=== PATIENT | female | born 1955 | race Caucasian/White ===

== ENCOUNTER → 2022-07-13 | Outpatient (CLI) | payer MEDICARE, BC, SELFPAY ==
[2022-07-13 21:56] LABS: Absolute Lymphocyte Count 1.93 X10^3/uL (0.83-4.51); Absolute Neutrophil Count 3.8 X10^3/uL (2.0-7.7); Basophil# 0.04 X10^3/uL; Basophil% 0.6 % (0-1); Eosinophil# 0.04 X10^3/uL; Eosinophils% 0.6 % (0-5); Hematocrit 39.3 % (37-47); Hemoglobin 13.9 g/dL (12.0-15.0); Lymphocyte # 1.93 X10^3/ul (0.83-4.51); Lymphocyte % 30.3 % (19-41); Mean Corp Hgb Conc 35.4 g/dL (32-36); Mean Corpuscular Hgb 33.7 pg (27.0-32.0); Mean Corpuscular Volume 95.4 fL (81-99); Monocyte# 0.59 X10^3/uL; Monocyte% 9.2 % (0-10); NRBC Flagged by Analyzer 0 % (0-5); Neutrophil # 3.77 X10^3/uL (2.7-7.7); Neutrophil % 59.1 % (47-70); Platelet Count 231 K/mm3 (150-450); RBC Distribution Width CV 11.9 % (11.6-14.6); RBC Distribution Width SD 41.3 fl (35.1-43.9); Red Blood Count 4.12 M/mm3 (4.2-5.4); White Blood Count 6.4 K/mm3 (4.4-11.0)
[2022-07-13 22:15] LABS: AST(SGOT) 22 U/L (15-37); Alanine Aminotransfer ALT/SGPT 37 U/L (13-56); Alkaline Phosphatase 101 U/L (45-117); Anion Gap 8 (5-15); BUN 18 mg/dL (7-18); BUN/Creat Ratio 27.9 RATIO (10-20); Calcium,Total 9.3 mg/dL (8.5-10.1); Chloride 106 mmol/L (98-107); Cholesterol 140 mg/dL (200); Creatinine, Serum 0.64 mg/dL (0.55-1.02); EST Glomerular Filtration Rate 97 mL/min (>60); Est Glom Filt Rate - Afr Amer 118 mL/min (>60); Globulin 3.9 g/dL (2.2-4.2); Glucose 129 mg/dL (74-106); High Density Lipoprotein 50 mg/dL; Potassium 3.8 mmol/L (3.5-5.1); Protein, Total 7.9 g/dL (6.4-8.2); Sodium Level 139 mmol/L (136-145); Triglycerides 228 mg/dL; Very Low Density Lipoprotein 46 mg/dL (5-40)
== END | disposition home or self-care (01) ==
PROVIDERS: Visit Provider Nurse Practitioner
DX: E78.5 Hyperlipidemia, unspecified (principal)
CPT/HCPCS: 80053; 80061; 85025

== ENCOUNTER → 2022-11-13 | Outpatient (CLI) | payer MEDICARE, BC, SELFPAY ==
--- NOTE | 2022-11-13 12:33 | BI_ITS ---
MAMMOGRAPHY - BILATERAL SCREENING REASON FOR EXAM: Female, 67 years old. Routine annual screening examination. PERTINENT HISTORY: Personal history of breast cancer. Prior right lumpectomy and radiation treatment. TECHNIQUE: Digital bilateral breast lydia (3D mammographic acquisition) in the CC and MLO projections. 2-D mediolateral oblique (MLO) and craniocaudad (CC) views of both breasts were obtained. CAD: Full Field Digital Mammography with Computer Added Detection was performed. COMPARISON: Comparison is made with prior outside examination to November 07, 2021. FINDINGS: Breast Composition: The breasts are extremely dense, which lowers the sensitivity of mammography. There are no dominant masses or suspicious calcifications. The patient is status post lumpectomy in the deep upper slightly lateral aspect of the right breast with resultant postoperative scarring and breast deformity. Dense calcification is seen at the operative site. Surgical clips are seen in the right axillary region as well. No other significant abnormalities are identified. There has been no significant change since the prior study. BI/SCRN MAMM (CAD)W/LYDIA BILAT IMPRESSION: Stable bilateral screening mammogram. Yearly follow-up mammogram recommended. (A) ASSESSMENT CATEGORY: BIRADS Category 2: Benign. A letter regarding these results will be sent to the patient by the facility within 30 days. Approximately 10% of breast cancers are not detected by mammography. A normal mammogram should not delay biopsy of a clinically suspicious abnormality. [id number] Electronically Signed: Eulogio Barkley MD at 14:55 EDT ,
== END | disposition home or self-care (01) ==
LOC: OPBI 12:31
PROVIDERS: Referring Provider Nurse Practitioner; Visit Provider Nurse Practitioner
DX: Z12.31 Encounter for screening mammogram for malignant neoplasm of breast (principal); Z85.3 Personal history of malignant neoplasm of breast
CPT/HCPCS: 77063; 77067

== ENCOUNTER → 2022-12-25 | Outpatient (CLI) | payer MEDICARE, BC, SELFPAY ==
[2022-12-25 22:38] LABS: ALB/GLOB Ratio 0.9 RATIO (0.9-2.4); AST(SGOT) 26 U/L (15-37); Alanine Aminotransfer ALT/SGPT 39 U/L (13-56); Albumin, Serum 3.6 g/dL (3.2-5.0); Alkaline Phosphatase 101 U/L (45-117); Anion Gap 7 (5-15); BUN 16 mg/dL (7-18); BUN/Creat Ratio 20.4 RATIO (10-20); Calcium,Total 8.7 mg/dL (8.5-10.1); Chloride 106 mmol/L (98-107); Creatinine, Serum 0.78 mg/dL (0.55-1.02); EST Glomerular Filtration Rate 78 mL/min (>60); Est Glom Filt Rate - Afr Amer 94 mL/min (>60); Globulin 3.9 g/dL (2.2-4.2); Glucose 159 mg/dL (74-106); Potassium 3.8 mmol/L (3.5-5.1); Protein, Total 7.5 g/dL (6.4-8.2); Rheumatoid Factor < 10.0 IU/mL (<15); Sodium Level 138 mmol/L (136-145); Thyroid Stim Hormone (TSH) 1.55 uIU/mL (0.358-3.74); Uric Acid 3.6 mg/dL (2.6-6.0)
[2022-12-27 05:07] LABS: Complement C3 143 mg/dL (82-167)
[2022-12-27 14:09] LABS: ANTINUCLEAR ANTIBODIES DIRECT Negative (Negative)
== END | disposition home or self-care (01) ==
PROVIDERS: Referring Provider Nurse Practitioner; Visit Provider Nurse Practitioner
DX: M19.90 Unspecified osteoarthritis, unspecified site (principal); L56.4 Polymorphous light eruption; R45.4 Irritability and anger
CPT/HCPCS: 80053; 84443; 84550; 86038; 86160; 86225; 86235; 86431

== ENCOUNTER → 2023-02-06 | Outpatient (CLI) | payer MEDICARE, BC, SELFPAY ==
[2023-02-06 22:32] LABS: Cholesterol 262 mg/dL (200); High Density Lipoprotein 43 mg/dL; Triglycerides 498 mg/dL
== END | disposition home or self-care (01) ==
PROVIDERS: Visit Provider Nurse Practitioner
DX: E78.5 Hyperlipidemia, unspecified (principal)
CPT/HCPCS: 80061

== ENCOUNTER → 2023-08-09 | Outpatient (CLI) | payer MEDICARE, BC, SELFPAY ==
[2023-08-09 19:58] LABS: Cholesterol 207 mg/dL (200); High Density Lipoprotein 53 mg/dL; Triglycerides 108 mg/dL; Very Low Density Lipoprotein 22 mg/dL (5-40)
== END | disposition home or self-care (01) ==
PROVIDERS: Visit Provider Nurse Practitioner
DX: E78.5 Hyperlipidemia, unspecified (principal)
CPT/HCPCS: 80061

== ENCOUNTER → 2023-11-15 | Outpatient (CLI) | payer MEDICARE, BC, SELFPAY ==
--- NOTE | 2023-11-15 10:43 | BI_ITS ---
MAMMOGRAPHY - BILATERAL SCREENING 3-D TOMOSYNTHESIS REASON FOR EXAM: Female, 68 years old. Z12.31 - Encounter for screening mammogram for malignant neopl... PERTINENT HISTORY: No significant family history. TECHNIQUE: 2-D mammograms and 3-D Tomosynthesis of the breast (s) were performed. CAD was performed. COMPARISON: 11/13/2022 FINDINGS: The breast composition is Extermely dense tissue. Scattered benign calcifications are seen. No dense spiculated masses or suspicious microcalcifications are identified. No architectural distortion is identified. There is no skin thickening or retraction. There has been no significant change since the prior study. No change in lumpectomy changes and scarring in the upper outer quadrant right breast. BI/SCRN MAMM (CAD)W/LYDIA BILAT IMPRESSION: No mammographic signs of malignancy. Routine yearly mammograms recommended. ASSESSMENT CATEGORY: BIRADS Category 2: Benign. A letter regarding these results will be sent to the patient by the facility within 30 days. FOLLOW UP RECOMMENDATION: Yearly follow up mammogram recommended. (A) Approximately 10% of breast cancers are not detected by mammography. A normal mammogram should not delay biopsy of a clinically suspicious abnormality. Electronically Signed: Franki Tamayo MD at 13:49 EDT ,
== END | disposition home or self-care (01) ==
PROVIDERS: PCP Nurse Practitioner; Referring Provider Nurse Practitioner; Visit Provider Nurse Practitioner
DX: Z12.31 Encounter for screening mammogram for malignant neoplasm of breast (principal)
CPT/HCPCS: 77063; 77067

== ENCOUNTER → 2024-02-11 | Outpatient (CLI) | payer MEDICARE, BC, SELFPAY ==
[2024-02-11 20:51] LABS: Absolute Lymphocyte Count 1.93 X10^3/uL (0.83-4.51); Absolute Neutrophil Count 2.9 X10^3/uL (2.0-7.7); Basophil# 0.03 X10^3/uL; Basophil% 0.5 % (0-1); Eosinophil# 0.08 X10^3/uL; Eosinophils% 1.4 % (0-5); Hematocrit 39.3 % (37-47); Hemoglobin 13.4 g/dL (12.0-15.0); Lymphocyte # 1.93 X10^3/ul (0.83-4.51); Lymphocyte % 34.9 % (19-41); Mean Corp Hgb Conc 34.1 g/dL (32-36); Mean Corpuscular Hgb 32.9 pg (27.0-32.0); Mean Corpuscular Volume 96.6 fL (81-99); Mean Platelet Vol. 9.9 fl (6.2-12.0); Monocyte# 0.62 X10^3/uL; Monocyte% 11.2 % (0-10); NRBC Flagged by Analyzer 0 % (0-5); Neutrophil # 2.85 X10^3/uL (2.7-7.7); Neutrophil % 51.6 % (47-70); Platelet Count 334 K/mm3 (150-450); RBC Distribution Width CV 12.1 % (11.6-14.6); RBC Distribution Width SD 42.6 fl (35.1-43.9); Red Blood Count 4.07 M/mm3 (4.2-5.4); White Blood Count 5.5 K/mm3 (4.4-11.0)
[2024-02-11 21:11] LABS: ALB/GLOB Ratio 1.1 RATIO (0.9-2.4); AST(SGOT) 23 U/L (15-37); Alanine Aminotransfer ALT/SGPT 24 U/L (13-56); Albumin, Serum 4.3 g/dL (3.2-5.0); Alkaline Phosphatase 139 U/L (45-117); Anion Gap 6 (5-15); BUN 15 mg/dL (7-18); BUN/Creat Ratio 21.1 RATIO (10-20); Calcium,Total 9.9 mg/dL (8.5-10.1); Chloride 105 mmol/L (98-107); Cholesterol 193 mg/dL (200); Creatinine, Serum 0.71 mg/dL (0.55-1.02); EST Glomerular Filtration Rate 87 mL/min (>60); Est Glom Filt Rate - Afr Amer 105 mL/min (>60); Globulin 3.9 g/dL (2.2-4.2); Glucose 133 mg/dL (74-106); High Density Lipoprotein 45 mg/dL; Potassium 3.9 mmol/L (3.5-5.1); Protein, Total 8.2 g/dL (6.4-8.2); Sodium Level 138 mmol/L (136-145); Triglycerides 178 mg/dL; Very Low Density Lipoprotein 36 mg/dL (5-40)
== END | disposition home or self-care (01) ==
PROVIDERS: PCP Nurse Practitioner; Referring Provider Nurse Practitioner; Visit Provider Nurse Practitioner
DX: E78.1 Pure hyperglyceridemia (principal); E78.5 Hyperlipidemia, unspecified; M15.9 Polyosteoarthritis, unspecified
CPT/HCPCS: 80053; 80061; 85025

== ENCOUNTER → 2024-09-23 | Outpatient (CLI) | payer MEDICARE, BC, SELFPAY ==
[2024-09-23 21:57] LABS: Absolute Lymphocyte Count 1.83 X10^3/uL (0.83-4.51); Absolute Neutrophil Count 3.5 X10^3/uL (2.0-7.7); Basophil# 0.04 X10^3/uL; Basophil% 0.7 % (0-1); Eosinophil# 0.07 X10^3/uL; Eosinophils% 1.1 % (0-5); Hematocrit 37.6 % (37-47); Hemoglobin 13.1 g/dL (12.0-15.0); Lymphocyte # 1.83 X10^3/ul (0.83-4.51); Mean Corp Hgb Conc 34.8 g/dL (32-36); Mean Corpuscular Hgb 32.9 pg (27.0-32.0); Mean Corpuscular Volume 94.5 fL (81-99); Monocyte# 0.61 X10^3/uL; NRBC Flagged by Analyzer 0 % (0-5); Neutrophil # 3.53 X10^3/uL (2.7-7.7); Neutrophil % 57.9 % (47-70); Platelet Count 330 K/mm3 (150-450); RBC Distribution Width CV 12.2 % (11.6-14.6); RBC Distribution Width SD 42.4 fl (35.1-43.9); Red Blood Count 3.98 M/mm3 (4.2-5.4); White Blood Count 6.1 K/mm3 (4.4-11.0)
[2024-09-23 22:13] LABS: ALB/GLOB Ratio 1.4 RATIO (0.9-2.4); AST(SGOT) 25 U/L (<=31); Alanine Aminotransfer ALT/SGPT 20 U/L (<=34); Albumin, Serum 4.7 g/dL (3.4-4.8); Alkaline Phosphatase 135 U/L (35-104); Anion Gap 12 (5-15); BUN 18 mg/dL (4-19); BUN/Creat Ratio 29.8 RATIO (10-20); Calcium,Total 9.9 mg/dL (7.6-11.0); Carbon Dioxide 23.7 mmol/L (21.0-32.0); Chloride 101 mmol/L (98-108); Cholesterol 190 mg/dL (<=200); Creatinine, Serum 0.59 mg/dL (0.70-1.20); EST Glomerular Filtration Rate 97 (>60); Globulin 3.3 g/dL (2.2-4.2); Glucose 117 mg/dL (70-99); High Density Lipoprotein 46 mg/dL; Low Density Lipoprotein Calc. 126 mg/dL; Potassium 4.3 mmol/L (3.3-5.1); Sodium Level 137 mmol/L (133-145); Total Bilirubin 0.34 mg/dL (0.00-1.30); Triglycerides 92 mg/dL; Very Low Density Lipoprotein 18 mg/dL (5-40); cholesterol:hdl ratio screen 4.13
== END | disposition home or self-care (01) ==
PROVIDERS: PCP Nurse Practitioner; Referring Provider Nurse Practitioner; Visit Provider Nurse Practitioner
DX: E78.1 Pure hyperglyceridemia (principal); E78.2 Mixed hyperlipidemia; F41.9 Anxiety disorder, unspecified
CPT/HCPCS: 80053; 80061; 85025

== ENCOUNTER → 2024-11-18 | Outpatient (CLI) | payer MEDICARE, BC, SELFPAY ==
--- NOTE | 2024-11-18 11:50 | BI_ITS ---
EXAM: SCRN MAMM (CAD)W/LYDIA BILAT DATE: 11/18/2024 CLINICAL HISTORY: F, Age 69 y/o , SCREENING TECHNIQUE: SCRN MAMM (CAD)W/LYDIA BILAT COMPARISON: Prior exam(s) dated 11/07/2023, 11/13/2022. FINDINGS: TISSUE DENSITY: The breasts are heterogeneously dense, which may obscure small masses. The mammogram demonstrates that the patient has dense breasts. Supplemental screening with whole breast ultrasound or MRI may be considered for further evaluation. Bilateral Breast Mammographic Findings: There is an asymmetry in the superior left breast at posterior depth visualized on the MLO view. No significant masses, calcifications or other abnormalities are identified in the right breast. BI/SCRN MAMM (CAD)W/LYDIA BILAT IMPRESSION: The asymmetry in the superior left breast at posterior depth requires further e valuation. Recommend diagnostic mammogram of the left breast and ultrasound on the day of diagnostic if indicated. OVERALL FINAL ASSESSMENT BI-RADS 0: INCOMPLETE - NEED ADDITIONAL IMAGING EVALUATION. RECOMMENDATION: Additional Views obtained/call backs A letter with findings and recommendations will be mailed to the patient. Reading Location: [id number]
--- NOTE | 2024-11-18 11:50 | BI_ITS ---
EXAM: SCRN MAMM (CAD)W/LYDIA BILAT DATE: 11/18/2024 CLINICAL HISTORY: F, Age 69 y/o , SCREENING TECHNIQUE: SCRN MAMM (CAD)W/LYDIA BILAT COMPARISON: Prior exam(s) dated 11/07/2023, 11/13/2022. FINDINGS: TISSUE DENSITY: The breasts are heterogeneously dense, which may obscure small masses. The mammogram demonstrates that the patient has dense breasts. Supplemental screening with whole breast ultrasound or MRI may be considered for further evaluation. Bilateral Breast Mammographic Findings: There is an asymmetry in the superior left breast at posterior depth visualized on the MLO view. No significant masses, calcifications or other abnormalities are identified in the right breast. BI/SCRN MAMM (CAD)W/LYDIA BILAT IMPRESSION: The asymmetry in the superior left breast at posterior depth requires further e valuation. Recommend diagnostic mammogram of the left breast and ultrasound on the day of diagnostic if indicated. OVERALL FINAL ASSESSMENT BI-RADS 0: INCOMPLETE - NEED ADDITIONAL IMAGING EVALUATION. RECOMMENDATION: Additional Views obtained/call backs A letter with findings and recommendations will be mailed to the patient. Reading Location: [id number]
== END | disposition home or self-care (01) ==
LOC: OPBI 11:44
PROVIDERS: PCP Nurse Practitioner; Referring Provider Nurse Practitioner; Visit Provider Nurse Practitioner
DX: Z12.31 Encounter for screening mammogram for malignant neoplasm of breast (principal)
CPT/HCPCS: 77063; 77067

== ENCOUNTER → 2024-12-01 | Outpatient (CLI) | payer MEDICARE, BC, SELFPAY ==
--- NOTE | 2024-12-01 12:50 | US_ITS ---
PROCEDURE: BREAST LIMITED UNILATERAL N/A REASON FOR EXAM: F, Age 69 y/o , L BREAST ASSYMETRY Abnormal screening mammogram. COMPARISON: Prior mammogram done earlier in the day.. TECHNIQUE: BREAST LIMITED UNILATERAL FINDINGS: The upper-outer aspect of the left breast was examined with ultrasound. There is dense fibroglandular tissue. No sonographic abnormality is seen. US/Breast Limited Unilateral IMPRESSION: No sonographic abnormality is seen. BI-RADS 1: NEGATIVE RECOMMENDATION: Routine annual follow-up in 1 Year Reading Location: [id number]
--- NOTE | 2024-12-01 12:50 | US_ITS ---
PROCEDURE: BREAST LIMITED UNILATERAL N/A REASON FOR EXAM: F, Age 69 y/o , L BREAST ASSYMETRY Abnormal screening mammogram. COMPARISON: Prior mammogram done earlier in the day.. TECHNIQUE: BREAST LIMITED UNILATERAL FINDINGS: The upper-outer aspect of the left breast was examined with ultrasound. There is dense fibroglandular tissue. No sonographic abnormality is seen. US/Breast Limited Unilateral IMPRESSION: No sonographic abnormality is seen. BI-RADS 1: NEGATIVE RECOMMENDATION: Routine annual follow-up in 1 Year Reading Location: [id number]
--- NOTE | 2024-12-01 13:15 | BI_ITS ---
EXAM: DIAG MAMM W/CAD, UNILAT 12/01/2024 CLINICAL HISTORY: F, Age 69 y/o , ASSYMETRY L BREAST TECHNIQUE: DIAG MAMM W/CAD, UNILAT.. Compression spot views of the left breast were obtained in the mediolateral oblique and craniocaudad projections. COMPARISON: Prior exam(s) dated prior mammogram dated November 18, 2024.. FINDINGS: TISSUE DENSITY: The breasts are extremely dense, which lowers the sensitivity of mammography. Bilateral Breast Mammographic Findings: No significant masses, calcifications or other abnormalities are identified. BI/DIAG MAMM W/CAD, UNILAT IMPRESSION: No mammographic abnormality is seen. Correlation with ultrasound recommended. OVERALL FINAL ASSESSMENT BI-RADS 0: INCOMPLETE - NEED ADDITIONAL IMAGING EVALUATION. RECOMMENDATION: Ultrasound Recommended A letter with findings and recommendations will be mailed to the patient. Reading Location: [id number]
--- NOTE | 2024-12-01 13:15 | BI_ITS ---
EXAM: DIAG MAMM W/CAD, UNILAT 12/01/2024 CLINICAL HISTORY: F, Age 69 y/o , ASSYMETRY L BREAST TECHNIQUE: DIAG MAMM W/CAD, UNILAT.. Compression spot views of the left breast were obtained in the mediolateral oblique and craniocaudad projections. COMPARISON: Prior exam(s) dated prior mammogram dated November 18, 2024.. FINDINGS: TISSUE DENSITY: The breasts are extremely dense, which lowers the sensitivity of mammography. Bilateral Breast Mammographic Findings: No significant masses, calcifications or other abnormalities are identified. BI/DIAG MAMM W/CAD, UNILAT IMPRESSION: No mammographic abnormality is seen. Correlation with ultrasound recommended. OVERALL FINAL ASSESSMENT BI-RADS 0: INCOMPLETE - NEED ADDITIONAL IMAGING EVALUATION. RECOMMENDATION: Ultrasound Recommended A letter with findings and recommendations will be mailed to the patient. Reading Location: [id number]
== END | disposition home or self-care (01) ==
LOC: OPBI 12:46
PROVIDERS: PCP Nurse Practitioner; Referring Provider Nurse Practitioner; Visit Provider Nurse Practitioner
DX: N63.20 Unspecified lump in the left breast, unspecified quadrant (principal); R92.8 Other abnormal and inconclusive findings on diagnostic imaging of breast
CPT/HCPCS: 76642; 77065